=== PATIENT | male | born 1965 | race Caucasian/White ===

== ENCOUNTER 2017-01-11 15:56 | Inpatient (IN) | payer BC ==
--- NOTE | ~2017-01-11 | DS ---
Discharge Summary [facility] [address] [place]. [address] NAME: KATIA TOBIAS : 69 STATUS : DIS IN PAT#: [id number] AGE: 51 ADM/REG DATE : 01/11/17 MR#: [id number] REPORT SERV DATE: 01/15/17 DICTATED BY: SPENCER FAULKNER DATE: 01/14/17 REPORT STATUS : Draft TRANSCRIBED BY: MODL DATE: 01/14/17 ADMISSION DATE: 01/11/2017 DISCHARGE DATE: 01/14/2017 DIAGNOSES: Left lower extremity cellulitis associated with nonhealing infected ankle wound with presumed methicillin-resistant Staphylococcus aureus, also history of deep venous thrombosis, hypertension, history of attention-deficit disorder. HISTORY OF PRESENT ILLNESS: Please see Dr. Manzo's dictation on 01/11. HOSPITAL COURSE: Admitted with cellulitis and wound. Regrettably, the wound was not cultured initially. The patient received vancomycin with some initial improvement and reduction of purulence. Cultures were collected; however, showed no growth. The patient had some ongoing improvement. He had no fevers. No white count. It was felt that it was unlikely that we would have a diagnostic culture specimen, but based on the failure of doxycycline and a history of previous staphylococci, presumptive diagnosis of MRSA was given. He was changed over to clindamycin to complete 14 days course of therapy. Recommended to notify his provider if diarrhea was to ensue. He will follow up with Dr. Barbara Garvin in one to two weeks. He will continue wound care and supplies were given for the wound. GOGO/JIMMY Spencer Faulkner M.D. / [id number] CC: Eduardo Rubio M.D.
--- NOTE | ~2017-01-11 | HP ---
History And Physical [facility] [id number] [place]. [address] NAME: KATIA TOBIAS : 69 STATUS : ADM IN PAT#: [id number] AGE: 51 ADM/REG DATE : 01/11/17 MR#: [id number] REPORT SERV DATE: 01/12/17 DICTATED BY: ZACK GONZALEZ DATE: 01/11/17 REPORT STATUS : Draft TRANSCRIBED BY: MODL DATE: 01/11/17 DATE OF ADMISSION: 01/11/2017 REASON FOR ADMISSION: Direct admission from Dr. Garvin's office for treatment of cellulitis with failed outpatient oral antibiotics. CHIEF COMPLAINT: "My ankle has been getting more red." HISTORY OF PRESENT ILLNESS: A 51-year-old white male with a history of a nonhealing ulcer that has been taken care of in [address] Goyal [facility], now being handled by Dr. Mina along with recurrent DVTs, on lifelong Eliquis, initially presented to Dr. Mina' office approximately 10 days ago, for which Dr. Mina felt like the patient had a cellulitis. He was started on Augmentin. He took about two or three doses and it got much worse as far as the redness and swelling, and therefore, the patient followed up with Dr. Garvin, who had started him on approximately five days of doxycycline, which was not improving. The patient states that he has been dealing with a nonhealing ulcer for quite some time. However, the ulcer was draining yellowish fluid, not odorous and he has had some increasing discoloration along with some redness of his left ankle, which is what had him concerned. He denies any fevers, but admits to some chills. He has had approximately seven to eight days' worth of oral antibiotics and his redness is not improving. Of note, the patient is currently being worked up for some autoimmune issue. He had a biopsy done by a pillowcase cutter on his upper left and right thighs about a year and a half ago, which presented as a possible allergic reaction to a blood pressure medicine, which had been changed, but his rash did not disappear. The patient states that Dr. Mina has done some ultrasounds, but never any arteriogram to determine if he has good vascular supply. The patient has been on doxycycline in the past with resolution of his cellulitis. Dr. Garvin asked to direct admit to the hospital for IV antibiotics. The patient is not responding to oral. REVIEW OF SYSTEMS: As per HPI, otherwise, 10-point systems reviewed and are negative. PAST MEDICAL HISTORY: 1. Recurrent DVTs initially diagnosed in 2003 after a trauma in his left lower extremity, for which case he was on 15 mg of Coumadin, then completed therapy and developed an another DVT, at which point, he was placed on Eliquis along with hypertension. 2. ADD. 3. History of diverticulitis. PAST SURGICAL HISTORY: Appendectomy. 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 He is with three children. Denies any smoking, illicit drug use, or alcohol. FAMILY HISTORY: Multiple relatives including his brother with recurrent DVTs, but the patient has been tested negative for hypercoagulable state. History And Physical [address] [place]. [address] NAME: KATIA TOBIAS : 69 STATUS : ADM IN [facility]#: [id number] AGE: 51 ADM/REG DATE : 01/11/17 MR#: [id number] REPORT SERV DATE: 01/12/17 DICTATED BY: ZACK GONZALEZ DATE: 01/11/17 REPORT STATUS : Draft TRANSCRIBED BY: JIMMY DATE: 01/11/17 ALLERGIES: NO KNOWN ALLERGIES. MEDICATIONS: Include Eliquis 5 mg twice a day, Wellbutrin 300 mg daily, vitamin B12, doxycycline 100 mg twice a day starting on 01/05/2017, flaxseed oil, Toprol-XL 50 mg daily. PHYSICAL EXAMINATION: VITAL SIGNS: Pending. GENERAL: He is in no acute distress. Alert and oriented x3. Very pleasant. HEENT: Normocephalic, atraumatic head. Extraocular muscles are intact. Oropharynx is clear. NECK: Supple. No JVD. CARDIAC: Regular rhythm. No murmurs, rubs, or gallops. PULMONARY: Clear to auscultation bilaterally. ABDOMEN: Soft, nontender, nondistended. Positive bowel sounds. EXTREMITIES: Showed no clubbing, no cyanosis. There is a nonhealing ulcer approximately a dime size on his left medial malleolar area with surrounding discoloration and redness with some fluctuance, but no induration. Superior to the discolored area, he does have a skin lesion on both legs in the upper thigh area. NEUROLOGICAL: No focal deficits. PSYCHIATRIC: The patient is cooperative. Mood is appropriate. SKIN: Warm and dry. LABORATORY DATA: Labs are pending, but has a sedimentation rate of 1 on 01/05/2017. C- reactive protein, normal complements on 01/06/2017. KENYATTA is 1:320. IMPRESSION: 1. Left lower extremity cellulitis with a nonhealing ulcer, failed outpatient oral therapy. 2. Recurrent deep vein thromboses, currently on lifelong Eliquis. 3. Hypertension. 4. Attention deficit disorder. PLAN: Is to do a CBC, BMP, and coags. We will obtain a procalcitonin and blood cultures. Start IV vancomycin. Obtain a wound care culture. The patient is full code. Anticipate good recovery. TRACEY/JIMMY Zack Gonzalez MD / [id number] CC: History And Physical [address] [address] NAME: KATIA TOBIAS : 69 STATUS : ADM IN [facility]#: [id number] AGE: 51 ADM/REG DATE : 01/11/17 MR#: [id number] REPORT SERV DATE: 01/12/17 DICTATED BY: ZACK GONZALEZ DATE: 01/11/17 REPORT STATUS : Draft TRANSCRIBED BY: JIMMY DATE: 01/11/17 MD Barbara Rhoades M.D. Griffin R Coates, M.D.
[2017-01-11] MEDS ORDERED: WELLXL300 PO (16:55)
[2017-01-11] MEDS ORDERED: FLAXSEED OIL1000 MG PO (16:56)
[2017-01-11] MEDS ORDERED: CYANO1000T PO (16:56)
[2017-01-11] MEDS ORDERED: TOPXL50 PO (16:56)
[2017-01-11] MEDS ORDERED: ELIQUIS 5 MG TAB5 MG PO (16:56)
[2017-01-11] MEDS ORDERED: VIBRATAB100 MG PO (16:57)
[2017-01-11 18:41] LABS: BASOPHILS 0.2 %; BASOPHILS ABSOLUTE 0.01 10/3/uL (0.0-0.16); EOSINOPHILS 1.6 %; EOSINOPHILS ABSOLUTE 0.08 10/3/uL (0.0-0.53); HEMATOCRIT 44.2 % (40.0-51.0); HEMOGLOBIN 15.6 g/dL (13.6-17.8); IMMATURE GRANULOCYTES 0.2 %; IMMATURE GRANULOCYTES ABSOLUTE 0.01 10/3/uL (0.0-0.11); LYMPHOCYTES 34.5 %; LYMPHOCYTES ABSOLUTE 1.72 10/3/uL (0.67-4.30); MEAN CORPUS HGB CONC 35.3 g/dL (32.0-36.0); MEAN CORPUSCULAR HEMOGLOB 31.6 pg (26.0-34.0); MEAN CORPUSCULAR VOLUME 89.7 fL (80-100); MEAN PLATELET VOLUME 9.5 fL (9.2-13.0); MONOCYTES 7.2 %; MONOCYTES ABSOLUTE 0.36 10/3/uL (0.21-1.20); NEUTROPHILS 56.3 %; NEUTROPHILS ABSOLUTE 2.81 10/3/uL (2.02-8.40); PLATELET COUNT 163 10/3/uL (150-400); RBC DISTRIBUTION WIDTH 12.3 % (12.0-16.0); RED CELL COUNT 4.93 10/6/uL (4.7-6.1)
[2017-01-11 18:49] LABS: INTERNATIONAL NORMAL RATI 1.2 UNITS (-); PARTIAL THROMBO TIME 26.9 SEC (22.5-37.2); PROTIME (NOT ORD) 14.6 SEC (12.0-14.5)
[2017-01-11 18:53] LABS: MANUAL DIFF NO %
[2017-01-11 18:55] LABS: BUN (BLOOD UREA NITROGEN) 19 MG/DL (6-23); CALCIUM, SERUM 8.6 MG/DL (8.5-10.4); CHLORIDE, SERUM 104 MMOL/L (96-112); CO2 (CARBON DIOXIDE) 28 MMOL/L (24-34); CREATININE 0.98 MG/DL (0.70-1.30); GFR AFRICAN AMERICAN 105 ML/MIN (>=60); GFR NON AFRICAN AMERICAN 90 ML/MIN (>=60); GLUCOSE, SERUM 97 MG/DL (60-99); PHOSPHORUS, SERUM 3.4 MG/DL (2.5-4.5); POTASSIUM, SERUM 4.4 MMOL/L (3.5-5.3); SODIUM, SERUM 139 MMOL/L (135-148)
[2017-01-11 19:27] LABS: PROCALCITONIN <0.05 ng/mL (<0.5)
[2017-01-12 05:29] LABS: BASOPHILS 0.3 %; BASOPHILS ABSOLUTE 0.01 10/3/uL (0.0-0.16); EOSINOPHILS 2.3 %; EOSINOPHILS ABSOLUTE 0.09 10/3/uL (0.0-0.53); HEMATOCRIT 45.7 % (40.0-51.0); HEMOGLOBIN 15.8 g/dL (13.6-17.8); LYMPHOCYTES 36.4 %; LYMPHOCYTES ABSOLUTE 1.44 10/3/uL (0.67-4.30); MANUAL DIFF NO %; MEAN CORPUS HGB CONC 34.6 g/dL (32.0-36.0); MEAN CORPUSCULAR HEMOGLOB 31.2 pg (26.0-34.0); MEAN CORPUSCULAR VOLUME 90.1 fL (80-100); MEAN PLATELET VOLUME 9.6 fL (9.2-13.0); MONOCYTES 8.6 %; MONOCYTES ABSOLUTE 0.34 10/3/uL (0.21-1.20); NEUTROPHILS 52.4 %; NEUTROPHILS ABSOLUTE 2.08 10/3/uL (2.02-8.40); PLATELET COUNT 173 10/3/uL (150-400); RBC DISTRIBUTION WIDTH 12.1 % (12.0-16.0); RED CELL COUNT 5.07 10/6/uL (4.7-6.1)
[2017-01-12 05:43] LABS: CALCIUM, SERUM 8.7 MG/DL (8.5-10.4); CHLORIDE, SERUM 107 MMOL/L (96-112); CO2 (CARBON DIOXIDE) 27 MMOL/L (24-34); GFR AFRICAN AMERICAN 116 ML/MIN (>=60); GFR NON AFRICAN AMERICAN 100 ML/MIN (>=60); GLUCOSE, SERUM 100 MG/DL (60-99); PHOSPHORUS, SERUM 3.6 MG/DL (2.5-4.5); POTASSIUM, SERUM 4.2 MMOL/L (3.5-5.3); SODIUM, SERUM 143 MMOL/L (135-148)
[2017-01-12 06:02] LABS: BUN (BLOOD UREA NITROGEN) 14 MG/DL (6-23)
[2017-01-13 04:56] LABS: BASOPHILS 0.2 %; BASOPHILS ABSOLUTE 0.01 10/3/uL (0.0-0.16); EOSINOPHILS 2.7 %; EOSINOPHILS ABSOLUTE 0.12 10/3/uL (0.0-0.53); HEMOGLOBIN 15.6 g/dL (13.6-17.8); LYMPHOCYTES 37.9 %; MEAN CORPUS HGB CONC 34.7 g/dL (32.0-36.0); MEAN CORPUSCULAR HEMOGLOB 31.4 pg (26.0-34.0); MEAN CORPUSCULAR VOLUME 90.5 fL (80-100); MEAN PLATELET VOLUME 9.7 fL (9.2-13.0); MONOCYTES 9.1 %; MONOCYTES ABSOLUTE 0.41 10/3/uL (0.21-1.20); NEUTROPHILS 50.1 %; NEUTROPHILS ABSOLUTE 2.25 10/3/uL (2.02-8.40); PLATELET COUNT 169 10/3/uL (150-400); RBC DISTRIBUTION WIDTH 12.3 % (12.0-16.0); RED CELL COUNT 4.97 10/6/uL (4.7-6.1); WHITE BLOOD CELLS 4.5 10/3/uL (4.5-10.5)
[2017-01-13 04:59] LABS: BUN (BLOOD UREA NITROGEN) 13 MG/DL (6-23); CHLORIDE, SERUM 105 MMOL/L (96-112); CO2 (CARBON DIOXIDE) 30 MMOL/L (24-34); GFR AFRICAN AMERICAN 116 ML/MIN (>=60); GFR NON AFRICAN AMERICAN 100 ML/MIN (>=60); GLUCOSE, SERUM 104 MG/DL (60-99); PHOSPHORUS, SERUM 3.1 MG/DL (2.5-4.5); POTASSIUM, SERUM 3.9 MMOL/L (3.5-5.3); SODIUM, SERUM 142 MMOL/L (135-148)
[2017-01-13 05:03] LABS: MANUAL DIFF NO %
[2017-01-14 08:46] LABS: BASOPHILS 0.2 %; BASOPHILS ABSOLUTE 0.01 10/3/uL (0.0-0.16); EOSINOPHILS 2.5 %; HEMOGLOBIN 15.8 g/dL (13.6-17.8); IMMATURE GRANULOCYTES 0.2 %; IMMATURE GRANULOCYTES ABSOLUTE 0.01 10/3/uL (0.0-0.11); LYMPHOCYTES 29.2 %; LYMPHOCYTES ABSOLUTE 1.19 10/3/uL (0.67-4.30); MEAN CORPUS HGB CONC 35.1 g/dL (32.0-36.0); MEAN CORPUSCULAR HEMOGLOB 31.3 pg (26.0-34.0); MEAN CORPUSCULAR VOLUME 89.1 fL (80-100); MEAN PLATELET VOLUME 9.4 fL (9.2-13.0); MONOCYTES 7.6 %; MONOCYTES ABSOLUTE 0.31 10/3/uL (0.21-1.20); NEUTROPHILS 60.3 %; NEUTROPHILS ABSOLUTE 2.45 10/3/uL (2.02-8.40); PLATELET COUNT 145 10/3/uL (150-400); RBC DISTRIBUTION WIDTH 12.4 % (12.0-16.0); RED CELL COUNT 5.05 10/6/uL (4.7-6.1); WHITE BLOOD CELLS 4.1 10/3/uL (4.5-10.5)
[2017-01-14 08:47] LABS: MANUAL DIFF NO %
[2017-01-14 08:57] LABS: BUN (BLOOD UREA NITROGEN) 12 MG/DL (6-23); CALCIUM, SERUM 8.1 MG/DL (8.5-10.4); CHLORIDE, SERUM 104 MMOL/L (96-112); CO2 (CARBON DIOXIDE) 30 MMOL/L (24-34); CREATININE 0.82 MG/DL (0.70-1.30); GFR AFRICAN AMERICAN 120 ML/MIN (>=60); GFR NON AFRICAN AMERICAN 104 ML/MIN (>=60); GLUCOSE, SERUM 91 MG/DL (60-99); PHOSPHORUS, SERUM 2.8 MG/DL (2.5-4.5); POTASSIUM, SERUM 3.9 MMOL/L (3.5-5.3); SODIUM, SERUM 141 MMOL/L (135-148); VANCOMYCIN TROUGH 8.9 MCG/ML (10.0-20.0)
[2017-01-14] MEDS ORDERED: CLEOCIN300 MG PO (16:00)
[2017-01-14] MEDS ORDERED: VENELEX OINTMENT (16:01)
== END 2017-01-14 16:45 | disposition home or self-care (01) | DRG 603 ==
LOC: 7NO 15:56
PROVIDERS: Internal Medicine
DX: L03.116 Cellulitis of left lower limb (principal); I82.5Z2 Chronic embolism and thrombosis of unspecified deep veins of left distal lower extremity; I10 Essential (primary) hypertension; L97.329 Non-pressure chronic ulcer of left ankle with unspecified severity; Z79.01 Long term (current) use of anticoagulants
CPT/HCPCS: 80048; 80202; 83735; 84100; 84145; 85025; 85610; 85730; 87040; 87070; 87205; 93923; A9270-GY; J1170; J3370